=== PATIENT | female | born 1945 | race Caucasian/White ===

== ENCOUNTER → 2017-10-25 | Outpatient (CLI) | payer OTHER ==
[~2017-10-25] VITALS: Ht 162.6 cm; Wt 80.0 kg
[~2017-10-25] MED LIST: ACID CONTROL20 MG; BENICAR20 MG; INDERAL80 MG PO; MACROBID100 MG; TURMERIC 500 M1 EACH PO; VITAMIN B-121000 MC3 PO; VITAMIN D35000 UNIT PO
[2017-10-25 11:32] VITALS: BP 131/60
== END | disposition home or self-care (01) ==
LOC: IVINF 11:08
DX: M81.0 Age-related osteoporosis without current pathological fracture (principal); Z87.19 Personal history of other diseases of the digestive system
CPT/HCPCS: 96365; J3489